=== PATIENT | female | born 1955 | race African-American/Black ===

== ENCOUNTER → 2024-05-27 | Day surgery (SDC) | payer MEDICARE ==
[~2024-05-27] MED LIST: ALPRAZOLAM0.5 MG PO; BENICAR20 MG PO; FAMOTIDINE20 MG PO; LANTUS 3ML100 UNITS/ SC; LEVOTHYROXINE88 MCG PO; LIPITOR10 MG PO; METAMUCIL FIBE3.4 GM PO; METOPROLOL SUCC50 MG PO; MULTI-VITAMIN1 EACH PO; NOVOLIN R100 UNIT/1 SC; QUETIAPINE FUM100 MG PO; vit d PO
[2024-05-27] MEDS: LACTATED RINGER'S 1,000 ML ONE (06:36)
[2024-05-27 07:35] VITALS: TEMP 97.5
[2024-05-27 07:50] VITALS: BP 142/75; PULSE 72; RESP 16; O2SAT 98
== END | disposition home or self-care (01) ==
LOC: ENDO 05:43
PROVIDERS: ATTEND Surgery
DX: K21.9 Gastro-esophageal reflux disease without esophagitis (principal); K29.70 Gastritis, unspecified, without bleeding; K20.90 Esophagitis, unspecified without bleeding; K44.9 Diaphragmatic hernia without obstruction or gangrene; E11.9 Type 2 diabetes mellitus without complications; I10 Essential (primary) hypertension; E78.5 Hyperlipidemia, unspecified; E66.01 Morbid (severe) obesity due to excess calories; E03.9 Hypothyroidism, unspecified; B19.20 Unspecified viral hepatitis C without hepatic coma; F41.9 Anxiety disorder, unspecified; Z79.4 Long term (current) use of insulin; Z79.899 Other long term (current) drug therapy; Z87.891 Personal history of nicotine dependence; Z68.41 Body mass index [BMI] 40.0-44.9, adult
CPT/HCPCS: 36415; 43239; 82948; 88305; 88342; 93005; J7121